=== PATIENT | female | born 2000 | race Caucasian/White ===

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

== ENCOUNTER 2022-05-26 03:05 | Emergency (ER) | payer OTHER ==
[~2022-05-26] VITALS: Ht 175.3 cm; Wt 61.4 kg
[~2022-05-26 03:05] MED LIST: ADDERALL10 MG PO; ZOLOFT 25MG25 MG PO
[2022-05-26 03:07] VITALS: TEMP 97.4
[2022-05-26] MEDS ORDERED: AMOXICILLIN875 MG PO (03:24)
[2022-05-26 03:31] VITALS: BP 104/78; PULSE 70
== END 2022-05-26 03:31 | disposition home or self-care (01) ==
LOC: COL.ER 03:05
DX: H66.92 Otitis media, unspecified, left ear (principal); Z28.310 Unvaccinated for COVID-19

== ENCOUNTER → 2023-09-01 | Outpatient (CLI) | payer OTHER ==
[~2023-09-01] MED LIST changes: +AMOXICILLIN875 MG PO; +Iohexol 300 - 100 ML VIAL IV ONE; +NS 100 ML IV SCH
== END ==
LOC: COL.RAD 12:54
DX: M41.84 Other forms of scoliosis, thoracic region (principal)
CPT/HCPCS: Q9967

== ENCOUNTER → 2024-02-25 | Outpatient (CLI) | payer OTHER ==
[~2024-02-25] MED LIST changes: +Gadoterate 15 ML VIAL IV ONE; -Iohexol 300 - 100 ML VIAL IV ONE; -NS 100 ML IV SCH
== END ==
LOC: COL.RAD 12:18
DX: G93.89 Other specified disorders of brain (principal); M62.81 Muscle weakness (generalized)
CPT/HCPCS: A9575